=== PATIENT | male | born 1950 | race African-American/Black ===

== ENCOUNTER 2021-03-15 15:09 | Emergency (ER) | payer MEDICAID ==
[~2021-03-15] VITALS: Ht 170.2 cm; Wt 58.0 kg
[~2021-03-15 15:09] MED LIST: HIV MEDS; [UNRECOGNIZED DRUG - OTHER]
[2021-03-15 15:21] VITALS: BP 127/79
== END 2021-03-15 19:42 | disposition left against medical advice (07) ==
LOC: ER 15:09
DX: R10.9 Unspecified abdominal pain (principal); Z53.21 Procedure and treatment not carried out due to patient leaving prior to being seen by health care provider